=== PATIENT | male | born 1940 | race Caucasian/White ===

== ENCOUNTER 2017-11-24 09:13 | Day surgery (SDC) | payer OTHER, MEDICARE ==
[~2017-11-24] VITALS: Ht 175.3 cm; Wt 102.1 kg
[~2017-11-24 09:13] MED LIST: CEFAZOLIN 1 GM IVPB PREMIX 50 ML IV ONE
[2017-11-24] MEDS ORDERED: POLYMYXIN 500,000/BACIT.10,000 UNITS in NS IRR 1 L IR ONE (11:56)
[2017-11-24] MEDS ORDERED: HYDROcodone/ACETAMIN 5-325 MG TAB (NORCO/ VICODIN) PO PRN (12:15)
[2017-11-24] MEDS ORDERED: HYDROmorphone 1 MG INJ. 1 MG/ML AMPUL IVP PRN (12:15)
[2017-11-24] MEDS ORDERED: ROCURONIUM BROMIDE 10 MG/ML (ZEMURON) IV ONE (12:19)
[2017-11-24] MEDS ORDERED: SEVOFLURANE 15 MIN GAS INH ONE (12:19)
[2017-11-24] MEDS ORDERED: DEXAMETHASONE SOD PHOSPHATE 4 MG/ML VIAL IVP ONE (12:19)
[2017-11-24] MEDS ORDERED: PROPOFOL 200MG/ 20ML VIAL (DIPRIVAN) IV ONE (12:19)
[2017-11-24] MEDS ORDERED: MIDAZOLAM HCL 5 MG/ML VIAL (VERSED) IV ONE (12:19)
[2017-11-24] MEDS ORDERED: ONDANSETRON HCL 4 MG/2 ML VIAL IVP ONE (12:19)
[2017-11-24] MEDS ORDERED: fentaNYL CITRATE/PF 100 MCG/2 ML AMP IVP ONE (12:19)
[2017-11-24] MEDS ORDERED: NS IRRIG SOLN 1000 ML IR ONE (12:19)
[2017-11-24] MEDS ORDERED: LR 1,000 ML IV.SOLN IV ONE (12:19)
[2017-11-24] MEDS ORDERED: LIDOCAINE 2%, 20 ML MDV INJ ONE (12:19)
[2017-11-24] MEDS ORDERED: ONDANSETRON HCL 4 MG/2 ML VIAL IVP PRN (12:45)
[2017-11-24] MEDS ORDERED: KETOROLAC TROMETHAMINE 30 MG VIAL IVP PRN (12:45)
[2017-11-24] MEDS ORDERED: fentaNYL CITRATE/PF 100 MCG/2 ML AMP IVP PRN ×2 (12:45)
[2017-11-24] MEDS ORDERED: KETOROLAC TROMETHAMINE 30 MG VIAL ONE (13:04)
[2017-11-24 14:18] VITALS: BP_SYST 145
[2017-11-24] MEDS: D5/0.45 NS 1,000 ML IV SCH (14:35)
[2017-11-24] MEDS ORDERED: ASPI325T2 PO (14:51)
[2017-11-24] MEDS ORDERED: SIMV10TA6 PO (14:51)
[2017-11-24] MEDS ORDERED: LOSA50TA20 PO (14:51)
[2017-11-24] MEDS ORDERED: [UNRECOGNIZED DRUG - OTHER] (14:51)
[2017-11-24] MEDS ORDERED: APIX5TAB PO (14:51)
[2017-11-24] MEDS ORDERED: CARV12.548 PO (14:51)
[2017-11-24 16:10] VITALS: BP_SYST 127
[2017-11-24] MEDS: HYDROcodone/ACETAMIN 5-325 MG TAB (NORCO/ VICODIN) PO PRN ×2 (16:12→20:18)
[2017-11-24 20:00] VITALS: BP_SYST 138
[2017-11-25 01:31] VITALS: BP_SYST 150
[2017-11-25] MEDS: D5/0.45 NS 1,000 ML IV SCH ×2 (04:14→09:29)
[2017-11-25 05:15] VITALS: BP_SYST 136
[2017-11-25 07:15] LABS: BASOPHILS # (AUTO) 0.1 K/uL (0.0-0.2); BASOPHILS % (AUTO) 0.5 % (0.0-2.0); HEMATOCRIT 39.3 % (36-54); HEMOGLOBIN 13.3 g/dL (14.0-18.0); LYMPHOCYTES # (AUTO) 1.4 K/uL (1.0-5.5); MEAN CORPUSCULAR HEMOGLOBIN 33 pg (27-31); MEAN CORPUSCULAR HGB CONC 34 % (32-36); MEAN CORPUSCULAR VOLUME 96 fL (79.0-98.0); MONOCYTES # (AUTO) 0.7 K/uL (0.0-1.0); MONOCYTES % (AUTO) 5.9 % (1.7-9.3); NEUTROPHILS # (AUTO) 10.4 K/uL (1.8-7.7); NEUTROPHILS % (AUTO) 82.6 % (40.0-70.0); PLATELET COUNT (AUTO) 187 K/uL (130-430); RED BLOOD CELL COUNT(AUTO) 4.08 MIL/uL (4.2-6.2); RED CELL DISTRIBUTION WIDTH 13.5 % (9.0-15.0); WHITE BLOOD COUNT (AUTO) 12.6 K/uL (4.8-10.8)
[2017-11-25 08:05] LABS: ALANINE AMINOTRANSFERASE 22 U/L (12-78); ALBUMIN 3.3 g/dL (3.4-4.8); ANION GAP 6 (5-15); ASPARTATE AMINOTRANSFERASE 18 U/L (10-37); CALCIUM 8.8 mg/dL (8.4-11.0); CHLORIDE 107 mmol/L (98-107); CREATININE 1.29 mg/dL (0.55-1.30); GLUCOSE 169 mg/dL (70-99); POTASSIUM 4.4 mmol/L (3.5-5.1); SODIUM SERUM 136 mmol/L (136-145); TOTAL BILIRUBIN 0.6 mg/dL (0.0-1.0); UREA NITROGEN, BLOOD 26 mg/dL (8-21)
[2017-11-25] MEDS: HYDROcodone/ACETAMIN 5-325 MG TAB (NORCO/ VICODIN) PO PRN (08:29)
[2017-11-25] MEDS ORDERED: ASPIRIN 81 MG TAB.CHEW PO SCH (09:00)
[2017-11-25] MEDS ORDERED: APIXABAN 2.5 MG TABLET PO SCH (09:00)
[2017-11-25 10:00] VITALS: BP_SYST 146
[2017-11-25 11:48] VITALS: BP_SYST 137
[2017-11-25 12:56] VITALS: BP_SYST 137
[2017-11-25 16:11] VITALS: BP_SYST 137
== END 2017-11-25 13:50 | disposition home or self-care (01) ==
LOC: SDS 09:13 → SMU 09:14 → STU 14:16 → EDSTATUS 15:23 → SDS 11-25 13:50
PROVIDERS: ATTEND Colon & Rectal Surgery
DX: K43.0 Incisional hernia with obstruction, without gangrene (principal); I25.10 Atherosclerotic heart disease of native coronary artery without angina pectoris; N18.3 Chronic kidney disease, stage 3 (moderate); I21.3 ST elevation (STEMI) myocardial infarction of unspecified site; I48.2 Chronic atrial fibrillation; E78.2 Mixed hyperlipidemia; I12.9 Hypertensive chronic kidney disease with stage 1 through stage 4 chronic kidney disease, or unspecified chronic kidney disease; E11.22 Type 2 diabetes mellitus with diabetic chronic kidney disease; Z85.46 Personal history of malignant neoplasm of prostate; Z98.890 Other specified postprocedural states; Z79.899 Other long term (current) drug therapy
CPT/HCPCS: 36415; 80053; 85025; 88302; 93005; C1781; J0690; J1100; J1885; J2001; J2250; J2405; J2704; J3010; J7042; J7120

== ENCOUNTER 2019-10-04 06:33 | Day surgery (SDC) | payer OTHER ==
[~2019-10-04] VITALS: Ht 175.3 cm; Wt 100.2 kg
[~2019-10-04 06:33] MED LIST changes: +APIX5TAB PO; +ASPI-989 PO; +CARV12.548 PO; -CEFAZOLIN 1 GM IVPB PREMIX 50 ML IV ONE; +LOSA50TA28 PO; +SIMV10TA6 PO; +[UNRECOGNIZED DRUG - OTHER]
[2019-10-04] MEDS ORDERED: CEFAZOLIN 1 GM IVPB PREMIX 50 ML IV ONE (07:30)
[2019-10-04] MEDS ORDERED: HYDROmorphone 1 MG INJ. 1 MG/ML AMPUL IVP PRN ×2 (09:30→10:00)
[2019-10-04] MEDS ORDERED: ONDANSETRON HCL 4 MG/2 ML VIAL IVP PRN (09:30)
[2019-10-04] MEDS ORDERED: D5/0.45 NS 1,000 ML IV SCH (09:57)
[2019-10-04] MEDS ORDERED: HYDROcodone/ACETAMIN 5-325 MG TAB (NORCO/ VICODIN) PO PRN ×2 (10:00)
[2019-10-04] MEDS ORDERED: SUCCINYLCHOLINE CHLORIDE 20 MG/ML(QUELICIN) ONE (10:04)
[2019-10-04] MEDS ORDERED: ONDANSETRON HCL 4 MG/2 ML VIAL ONE (10:04)
[2019-10-04] MEDS ORDERED: METOCLOPRAMIDE HCL 10 MG/2 ML VIAL ONE (10:04)
[2019-10-04] MEDS ORDERED: PROPOFOL 200MG/ 20ML VIAL (DIPRIVAN) IV ONE (10:04)
[2019-10-04] MEDS ORDERED: DEXAMETHASONE SOD PHOSPHATE 4 MG/ML VIAL ONE (10:04)
[2019-10-04] MEDS ORDERED: LR 1,000 ML IV.SOLN IV ONE (10:04)
[2019-10-04] MEDS ORDERED: BUPIVACAINE /EPINEPHRINE/PF 0.25% 30 ML VIAL INJ ONE (10:04)
[2019-10-04] MEDS ORDERED: DESFLURANE 15 MIN GAS INH ONE (10:04)
[2019-10-04] MEDS ORDERED: ROCURONIUM BROMIDE 10 MG/ML (ZEMURON) ONE (10:04)
[2019-10-04] MEDS ORDERED: fentaNYL CITRATE/PF 100 MCG/2 ML AMP ONE (10:04)
[2019-10-04 10:56] VITALS: BP_SYST 118
== END 2019-10-04 11:30 | disposition home or self-care (01) ==
LOC: SMU 06:33 → SDS 06:33
PROVIDERS: ATTEND Colon & Rectal Surgery
DX: K43.9 Ventral hernia without obstruction or gangrene (principal); E66.3 Overweight; I25.10 Atherosclerotic heart disease of native coronary artery without angina pectoris; I12.9 Hypertensive chronic kidney disease with stage 1 through stage 4 chronic kidney disease, or unspecified chronic kidney disease; N18.3 Chronic kidney disease, stage 3 (moderate); E78.5 Hyperlipidemia, unspecified; Z68.30 Body mass index [BMI] 30.0-30.9, adult; I25.2 Old myocardial infarction; I48.19 Other persistent atrial fibrillation; D68.69 Other thrombophilia; Z85.46 Personal history of malignant neoplasm of prostate; E66.9 Obesity, unspecified; Z95.5 Presence of coronary angioplasty implant and graft; Z79.82 Long term (current) use of aspirin; Z79.01 Long term (current) use of anticoagulants; Z79.899 Other long term (current) drug therapy
CPT/HCPCS: 49560; 49568; C1781; J0690; J7120; J0330; J1100; J2405; J2704; J2765; J3010; J3490